=== PATIENT | female | born 1980 | race Hispanic/Latino ===

== ENCOUNTER 2017-10-07 16:15 | Emergency (ER) | payer BC, SELFPAY ==
--- NOTE | 2017-10-07 17:11 | RAD REPORT ---
EXAM DESCRIPTION: RAD - Knee Left 3 View - 10/07/2017 5:06 pm CLINICAL HISTORY: Slip and fall, knee pain COMPARISON: None. FINDINGS: No fracture, dislocation or periosteal reaction.No joint effusion seen. No joint space esteban rowing. No soft tissue abnormality. IMPRESSION: Negative left knee. Clinical concerns for internal derangement or occult bony injury could be further assessed with MR im aging.
--- NOTE | 2017-10-07 17:25 | EDPHYS ---
Physician Documentation [facility] Name: Cecille Min Age: 37 yrs Sex: Female : 1980 Arrival Date: 10/07/2017 Time: 16:16 Bed 6 Private MD: ED Physician Brad Trimble HPI: 10/07 17:00 This 37 yrs old Female presents to ER via Ambulatory with complaints of Knee jr8 Injury. 17:00 The patient presents with an abrasion, pain, tenderness. The complaints affect the left jr8 knee. Context: The problem was sustained outdoors, resulted from the patient falling. Onset: The symptoms/episode began/occurred acutely. Modifying factors: The symptoms are alleviated by nothing. the symptoms are aggravated by movement, weight bearing, bending knee. Associated signs and symptoms: The patient has no apparent associated signs or symptoms. Severity of symptoms: At their worst the symptoms were moderate, in the emergency department the symptoms are unchanged. The patient has not experienced similar symptoms in the past. The patient has not recently seen a physician. Stated that she fell on her knee. Has been trying to cope with pain but that it continues to get worse . 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 - Social history:: Smoking status: Patient/guardian denies using tobacco. ROS: 17:00 Eyes: Negative for injury, pain, redness, and discharge, ENT: Negative for injury, jr8 pain, and discharge, Neck: Negative for injury, pain, and swelling, Cardiovascular: Negative for chest pain, palpitations, and edema, Respiratory: Negative for shortness of breath, cough, wheezing, and pleuritic chest pain, Abdomen/GI: Negative for abdominal pain, nausea, vomiting, diarrhea, and constipation, Back: Negative for injury and pain, Skin: Negative for injury, rash, and discoloration, Neuro: Negative for headache, weakness, numbness, tingling, and seizure. 17:00 MS/extremity: Positive for abrasion, pain, tenderness, of the left knee. Exam: 17:00 Cardiovascular: Regular rate and rhythm with a normal S1 and S2. No gallops, murmurs, jr8 or rubs. Normal PMI, no JVD. No pulse deficits. Respiratory: Lungs have equal breath sounds bilaterally, clear to auscultation and percussion. No rales, rhonchi or wheezes noted. No increased work of breathing, no retractions or nasal flaring. Skin: Warm, dry with normal turgor. Normal color with no rashes, no lesions, and no evidence of cellulitis. Neuro: Awake and alert, GCS 15, oriented to person, place, time, and situation. Cranial nerves II-XII grossly intact. Motor strength 5/5 in all extremities. Sensory grossly intact. Cerebellar exam normal. Normal gait. 17:00 Musculoskeletal/extremity: Extremities: grossly normal except: noted in the left knee: abrasion, pain, tenderness, ROM: intact in all extremities, full active range of motion, full passive range of motion, limited active range of motion due to pain, limited passive range of motion due to pain, Circulation is intact in all extremities. Sensation intact. Weight bearing: able to fully bear weight. Vital Signs: 16:22 BP 117 / 82; Pulse 107; Resp 20; Temp 99.0; Pulse Ox 99% on R/A; Weight 116.57 kg; aj Height 5 ft. 7 in. (170.18 cm); Pain 5/10; 16:22 Body Mass Index 40.25 (116.57 kg, 170.18 cm) MDM: 16:31 Patient medically screened. jr8 17:25 Data reviewed: vital signs, nurses notes, radiologic studies, plain films, and as a jr8 result, I will discharge patient. Data interpreted: Pulse oximetry: on room air is 99 %. Interpretation: normal. Counseling: I had a detailed discussion with the patient and/or guardian regarding: the historical points, exam findings, and any diagnostic results supporting the discharge/admit diagnosis, radiology results, the need for outpatient follow up, a orthopedic surgeon, to return to the emergency department if symptoms worsen or persist or if there are any questions or concerns that arise at home. 10/07 16:24 Order name: XRAY Knee LEFT 3 view; Complete Time: 17:24 Administered Medications: No medications were administered Disposition: 19:01 Co-signature as Attending Physician, Brad Trimble MD. rn Disposition: 10/07/17 17:25 Discharged to Home. Impression: Contusion of left knee. - Condition is Stable. - Discharge Instructions: Knee Pain. - Prescriptions for Ibuprofen 800 mg Oral Tablet - take 1 tablet by ORAL route every 12 hours As needed take with food; 20 tablet. Tramadol 50 mg Oral Tablet - take 1 tablet by ORAL route every 8 hours as needed; 12 tablet. - Medication Reconciliation Form, Thank You Letter, Antibiotic Education, Prescription Opioid Use form. - Follow up: Juanjo Katz MD; When: 7 - 10 days; Reason: If symptoms return, Recheck today's complaints, Continuance of care, Re-evaluation by your physician. - Problem is new. - Symptoms have improved. Signatures: Dispatcher [employer] Ana Ramirez, RN Zee Richter RN RN aj Nieto, Roman, MD MD rn Roszak, Josh, PA PA jr8
--- NOTE | 2017-10-07 17:25 | ER ---
Nurse's Notes [facility] Name: Cecille Min Age: 37 yrs Sex: Female : 1980 Arrival Date: 10/07/2017 Time: 16:16 Bed 6 Private MD: Diagnosis: Contusion of left knee Presentation: 10/07 16:20 Presenting complaint: Patient states: Reports falling onto left knee 2 days ago. aj Patient ambulated to triage with limp to left leg. Abrasion noted to left knee. Transition of care: patient was not received from another setting of care. Onset of symptoms was October 05, 2017. Initial Sepsis Screen: Does the patient meet any 2 criteria? No. Patient's initial sepsis screen is negative. Does the patient have a suspected source of infection? No. Patient's initial sepsis screen is negative. Care prior to arrival: None. 16:20 Method Of Arrival: Ambulatory 16:20 Acuity: NANCY 4 aj Triage Assessment: 16:22 General: Appears in no apparent distress. comfortable, Behavior is calm, cooperative, aj appropriate for age. Pain: Complains of pain in left knee. Neuro: Level of Consciousness is awake, alert, obeys commands, Oriented to person, place, time, situation, Appropriate for age. Respiratory: Airway is patent Respiratory effort is even, unlabored, Respiratory pattern is regular, symmetrical. Derm: Skin is intact, is healthy with good turgor, Skin is pink, warm \T\ dry. normal. Musculoskeletal: Circulation, motion, and sensation intact. Range of motion: intact in all extremities, Reports pain in left knee. Injury Description: Abrasion sustained to left knee. 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 - Social history:: Smoking status: Patient/guardian denies using tobacco. Screenin:35 Abuse screen: Denies threats or abuse. Denies injuries from another. Nutritional sv screening: No deficits noted. Tuberculosis screening: No symptoms or risk factors identified. Fall Risk None identified. Assessment: 16:35 General: Appears in no apparent distress. uncomfortable, well developed, Behavior is sv calm, cooperative, appropriate for age. Pain: Complains of pain in left knee Pain does not radiate. Pain currently is 5 out of 10 on a pain scale. Quality of pain is described as tender, throbbing, Pain began 1 day ago. Is intermittent, episodic, Aggravated by exercise, increased activity, weight bearing. Neuro: Level of Consciousness is awake, alert, obeys commands, Oriented to person, place, time, situation, Moves all extremities. Full function Gait is steady, with slight limp. Speech is normal. Cardiovascular: Patient's skin is warm and dry. Respiratory: Respiratory effort is even, unlabored, Respiratory pattern is regular, symmetrical. Derm: Skin is pink, warm \T\ dry. Bruising that is dark purple, on left knee. Musculoskeletal: Range of motion: intact in all extremities. Injury Description: Abrasion sustained to left knee is scabbed, was sustained 1 day ago. 17:40 Reassessment: Patient appears in no apparent distress at this time. No changes from previously documented assessment. Patient and/or family updated on plan of care and expected duration. Pain level reassessed. Patient is alert, oriented x 3, equal unlabored respirations, skin warm/dry/pink. Vital Signs: 16:22 BP 117 / 82; Pulse 107; Resp 20; Temp 99.0; Pulse Ox 99% on R/A; Weight 116.57 kg; aj Height 5 ft. 7 in. (170.18 cm); Pain 5/10; 16:22 Body Mass Index 40.25 (116.57 kg, 170.18 cm) aj ED Course: 16:16 Patient arrived in ED. as 16:21 Triage completed. aj 16:22 Arm band placed on right wrist. Patient placed in waiting room, Patient notified of aj wait time. X-ray ordered. 16:31 Rio Wakefield PA is PHCP. jr8 16:31 Brad Trimble MD is Attending Physician. jr8 16:31 Ana Monge RN is Primary Nurse. sv 16:35 Patient has correct armband on for positive identification. Bed in low position. Call sv light in reach. Door closed. Head of bed elevated. 16:46 Awaiting for x-ray. sv 16:58 X-ray(s) taken. sv 17:03 X-ray completed. Portable x-ray completed in exam room. Patient tolerated procedure ml well. 17:04 XRAY Knee LEFT 3 view In Process Unspecified. EDMS 17:25 Juanjo Katz MD is Referral Physician. jr8 17:40 No provider procedures requiring assistance completed. Patient did not have IV access sv during this emergency room visit. Administered Medications: No medications were administered Outcome: 17:25 Discharge ordered by . jr8 17:40 Discharged to home ambulatory. sv 17:40 Condition: stable 17:40 Discharge instructions given to patient, Instructed on discharge instructions, follow up and referral plans. no drinking with medication, no driving heavy equipment, medication usage, Demonstrated understanding of instructions, follow-up care, medications, Prescriptions given X 2. 17:41 Patient left the ED. sv Signatures: Dispatcher [employer] [facility] Ana Monge RN RN sv Myers, Amanda, RN RN aj Martinez, Amelia as Lopez, Melissa ml Roszak, Josh, PA PA jr8
== END 2017-10-07 17:41 | disposition home or self-care (01) ==
LOC: ER 16:15
DX: S80.02XA Contusion of left knee, initial encounter (principal); W19.XXXA Unspecified fall, initial encounter; Y92.89 Other specified places as the place of occurrence of the external cause
CPT/HCPCS: 99283

== ENCOUNTER 2022-09-05 07:41 | Emergency (ER) | payer SELFPAY ==
[2022-09-05] MEDS ORDERED: ONDANSETRON 4 MG/2 ML VIAL ONE (08:09)
[2022-09-05] MEDS ORDERED: KETOROLAC 30 MG/ML INJ ONE (08:09)
[2022-09-05 08:14] LABS: Absolute Lymphocytes (CBC) 1.3 K/uL (0.7-4.9); Hematocrit 29.3 % (36.0-45.0); Lymphocytes % 17.7 % (15.3-44.8); MCV 81.7 fL (80-100); MPV 7.9 fL (7.6-11.3); RBC Red Blood Cell Count 3.58 M/uL (3.86-4.86)
[2022-09-05 08:23] LABS: Specific Gravity > 1.030 (1.005-1.030); Urine Bacteria <20 /HPF (<20); Urine Bilirubin NEGATIVE (Negative); Urine Blood Negative (Negative); Urine Clarity Turbid (Clear); Urine Color Yellow (Yellow); Urine Glucose NEGATIVE (Negative); Urine Mucus 4+ /HPF (None Seen); Urine Protein 1+ (Negative); Urine Urobilinogen Normal (Normal); Urine WBC Clump Rare /HPF (None Seen)
[2022-09-05 08:30] LABS: Albumin 3.5 g/dL (3.4-5.0); Bilirubin Total 0.3 mg/dL (0.2-1.0); Potassium 3.6 mEq/L (3.5-5.1); Protein, Total 7.2 g/dL (6.4-8.2)
--- NOTE | 2022-09-05 09:21 | RAD REPORT ---
EXAM DESCRIPTION: CTAbdomen Pelvis W Contrast - 09/05/2022 9:08 am CLINICAL HISTORY: Abdominal pain. ab pain COMPARISON: No comparisons TECHNIQUE: Biphasic CT imaging of the abdomen and pelvis was performed with 100 ml non-ionic IV cont rast. All CT scans are performed using dose optimization technique as appropriate and may include automated exposure control or mA/KV adjustment according to patient size. FINDINGS: Subpleural opacities in both lung bases has the appearance of scarring or fibrotic changes .Cholecystectomy The liver, spleen, pancreas, adrenal glands and kidneys are within normal limits. No bowel obstruction, free air, free fluid or abscess. The appendix is normal. No evidence of signi ficant lymphadenopathy. Mild fibroid uterus. No suspicious bony findings. IMPRESSION: No acute intra-abdominal or pelvic finding.
--- NOTE | 2022-09-05 09:31 | ER ---
Nurse's Notes [facility] Name: Cecille Carty Age: 41 yrs Sex: Female : 1980 Arrival Date: 09/05/2022 Time: 07:43 Bed 8 Private MD: Diagnosis: UTI/ Urinary tract infection, site not specified Presentation: 09/05 07:45 Chief complaint: Patient states: LLQ pain radiating down left leg and left low back aa5 since yesterday, pt reports pain improved after taking Tylenol and was able to sleep until the pain woke her up at 0300 today. Pt states "I only get this kind of pains with my periods but I am not on my period right now". Denies urinary symptoms. 07:45 Coronavirus screen: At this time, the client does not indicate any symptoms associated aa5 with coronavirus-19. Ebola Screen: Patient denies travel to an Ebola-affected area in the 21 days before illness onset. Initial Sepsis Screen: Does the patient meet any 2 criteria? No. Patient's initial sepsis screen is negative. Does the patient have a suspected source of infection? No. Patient's initial sepsis screen is negative. Risk Assessment: Do you want to hurt yourself or someone else? Patient reports no desire to harm self or others. Onset of symptoms was September 05, 2022. 07:45 Acuity: NANCY 3 aa5 07:45 Method Of Arrival: Ambulatory aa5 Historical: - Allergies: 07:51 No Known Allergies; aa5 - Home Meds: 07:51 None [Active]; aa5 - PMHx: 07:51 Fibromyalgia; aa5 - PSHx: 07:51 Cholecystectomy; tubal ligation; tumors removed from sinus; aa5 - Immunization history:: Adult Immunizations unknown. - Social history:: Smoking status: Patient denies any tobacco usage or history of. - Family history:: not pertinent. Screenin:10 [facility] ED Fall Risk Assessment (Adult) Score/Fall Risk Level 0 - 2 = Low Risk hb Oriented to surroundings, Maintained a safe environment, Educated pt \\T\\ family on fall prevention, incl call for assistance when getting out of bed. Abuse screen: Denies threats or abuse. Denies injuries from another. Nutritional screening: No deficits noted. Tuberculosis screening: No symptoms or risk factors identified. Assessment: 08:09 General: Appears in no apparent distress. uncomfortable, Behavior is cooperative, hb crying. Pain: Pain currently is 10 out of 10 on a pain scale. Neuro: Level of Consciousness is awake, alert, obeys commands, Oriented to person, place, time, situation. Cardiovascular: Patient's skin is warm and dry. Respiratory: Respiratory effort is even, unlabored, Respiratory pattern is regular, symmetrical. GI: Reports LLQ pain 10/10. : No signs and/or symptoms were reported regarding the genitourinary system. EENT: No signs and/or symptoms were reported regarding the EENT system. Derm: Skin is pink, warm \\T\\ dry. Musculoskeletal: No signs and/or symptoms reported regarding the musculoskeletal system. 08:10 Reassessment: Pt ambulatory to restroom to collect urine specimen. . aa5 08:33 Reassessment: Patient is alert, oriented x 3, equal unlabored respirations, skin aa5 warm/dry/pink. Patient states feeling better. Patient states symptoms have improved. Pain: Pain currently is 8 out of 10 on a pain scale. 09:18 Reassessment: Patient appears in no apparent distress at this time. Patient and/or hb family updated on plan of care and expected duration. Pain level reassessed. Patient is alert, oriented x 3, equal unlabored respirations, skin warm/dry/pink. Vital Signs: 07:45 BP 142 / 83; Pulse 76; Resp 20 S; Temp 98.4(O); Pulse Ox 99% on R/A; Weight 107.5 kg aa5 (R); Height 5 ft. 7 in. (R); 08:33 BP 127 / 60; Pulse 68; Resp 18 S; Pulse Ox 99% on R/A; aa5 09:17 BP 111 / 53; Pulse 76; Resp 15; Pulse Ox 99% on R/A; hb 07:45 Body Mass Index 37.12 (107.50 kg, 170.18 cm) aa5 ED Course: 07:43 Patient arrived in ED. mr 07:45 Arm band placed on Patient placed in an exam room, on a stretcher. aa5 07:48 Wade Arizmendi MD is Attending Physician. rt 07:54 Triage completed. aa5 08:04 Initial lab(s) drawn, by me, sent to lab. Inserted saline lock: 20 gauge in right aa5 antecubital area, using aseptic technique. Blood collected. 08:08 UAM Sent. hb 08:08 Lipase Sent. hb 08:08 CMP Sent. hb 08:08 CBC with Diff Sent. hb 08:08 Test, Serum Sent. hb 08:10 Patient has correct armband on for positive identification. hb 09:09 CT Abd/Pelvis - IV Contrast Only In Process Unspecified. EDMS 09:38 No provider procedures requiring assistance completed. IV discontinued, intact, hb bleeding controlled, No redness/swelling at site. Administered Medications: 08:08 Drug: Ketorolac IVP 30 mg Route: IVP; Site: right antecubital; hb 08:08 Drug: Ondansetron IVP 4 mg Route: IVP; Site: right antecubital; hb Medication: 09:38 VIS not applicable for this client. hb Outcome: 09:30 Discharge ordered by MD. rt 09:38 Discharged to home ambulatory. hb 09:38 Condition: stable 09:38 Discharge instructions given to patient, Instructed on discharge instructions, follow up and referral plans. medication usage, Demonstrated understanding of instructions, follow-up care, medications, Prescriptions given X 2. 09:39 Patient left the ED. hb Signatures: Dispatcher [employer] [facility] Bárbara Krishna mr Laurita Walker RN RN aaRenetta Hart RN RN Wade Mcgregor MD MD rt Corrections: (The following items were deleted from the chart) 21:01 07:45 Laurita Walker, RN is Primary Nurse. aa5 aa5
--- NOTE | 2022-09-05 09:31 | EDPHYS ---
Physician Documentation [facility] Name: Cecille Carty Age: 41 yrs Sex: Female : 1980 Arrival Date: 09/05/2022 Time: 07:43 Bed 8 Private MD: ED Physician Wade Arizmendi HPI: 09/05 08:16 This 41 yrs old Female presents to ER via Ambulatory with complaints of rt Abdominal Pain, Leg Pain, Back Pain. 08:16 Patient presents to the ED with a left lower quadrant pain that radiates down posterior rt leg, to her low back. This started yesterday evening, is worsening in severity today. Patient states that she typically gets these pains albeit somewhat less severe when she has her period, states that she is not currently on her period, LMP was 2 weeks ago. Had a previous tubal ligation. The patient denies any vaginal bleeding, discharge, dysuria, hematuria, bowel troubles. Denies true flank pain. Reports nausea without vomiting. Denies other acute complaints at this time, symptoms are moderate in severity, no other aggravating or alleviating factors.. Historical: - Allergies: 07:51 No Known Allergies; aa5 - Home Meds: 07:51 None [Active]; aa5 - PMHx: 07:51 Fibromyalgia; aa5 - PSHx: 07:51 Cholecystectomy; tubal ligation; tumors removed from sinus; aa5 - Immunization history:: Adult Immunizations unknown. - Social history:: Smoking status: Patient denies any tobacco usage or history of. - Family history:: not pertinent. ROS: 08:16 Constitutional: Negative for fever, chills, and weight loss, Cardiovascular: Negative rt for chest pain, palpitations, and edema, Respiratory: Negative for shortness of breath, cough, wheezing, and pleuritic chest pain, MS/Extremity: Negative for injury and deformity, Skin: Negative for injury, rash, and discoloration, Neuro: Negative for headache, weakness, numbness, tingling, and seizure, Psych: Negative for depression, anxiety, suicide ideation, homicidal ideation, and hallucinations. 08:16 Abdomen/GI: Positive for abdominal pain, nausea. 08:16 Back: Positive for pain at rest, Negative for injury or acute deformity. Exam: 08:16 Constitutional: This is a well developed, well nourished patient who is awake, alert, rt and in no acute distress. Head/Face: Normocephalic, atraumatic. Chest/axilla: Normal chest wall appearance and motion. Nontender with no deformity. No lesions are appreciated. Cardiovascular: Regular rate and rhythm with a normal S1 and S2. No gallops, murmurs, or rubs. Normal PMI, no JVD. No pulse deficits. Respiratory: Lungs have equal breath sounds bilaterally, clear to auscultation and percussion. No rales, rhonchi or wheezes noted. No increased work of breathing, no retractions or nasal flaring. Skin: Warm, dry with normal turgor. Normal color with no rashes, no lesions, and no evidence of cellulitis. MS/ Extremity: Pulses equal, no cyanosis. Neurovascular intact. Full, normal range of motion. Neuro: Awake and alert, GCS 15, oriented to person, place, time, and situation. Cranial nerves II-XII grossly intact. Motor strength 5/5 in all extremities. Sensory grossly intact. Cerebellar exam normal. Normal gait. Psych: Awake, alert, with orientation to person, place and time. Behavior, mood, and affect are within normal limits. 08:16 Abdomen/GI: Tenderness to the left lower quadrant without rebound, guarding, distention, no costovertebral angle tenderness.. Vital Signs: 07:45 BP 142 / 83; Pulse 76; Resp 20 S; Temp 98.4(O); Pulse Ox 99% on R/A; Weight 107.5 kg aa5 (R); Height 5 ft. 7 in. (R); 08:33 BP 127 / 60; Pulse 68; Resp 18 S; Pulse Ox 99% on R/A; aa5 09:17 BP 111 / 53; Pulse 76; Resp 15; Pulse Ox 99% on R/A; hb 07:45 Body Mass Index 37.12 (107.50 kg, 170.18 cm) aa5 MDM: 07:54 Patient medically screened. rt 09:32 Differential diagnosis: UTI, pyelonephritis, ovarian torsion, diverticulitis. Data rt reviewed: vital signs, nurses notes, lab test result(s), radiologic studies. Test considered but Not performed: Ultrasound Symptoms resolved with Toradol, presentation is not consistent with an ovarian torsion, do not believe that ultrasound is indicated at this time. I discussed concerning symptoms for ovarian torsion, patient to return if she develops the symptoms for reevaluation of ovarian torsion.. Counseling: I had a detailed discussion with the patient and/or guardian regarding: the historical points, exam findings, and any diagnostic results supporting the discharge/admit diagnosis, lab results, radiology results, the need for outpatient follow up, to return to the emergency department if symptoms worsen or persist or if there are any questions or concerns that arise at home. 09/05 08:01 Order name: CBC with Diff; Complete Time: 09:24 rt 09/05 08:01 Order name: CMP; Complete Time: 09:24 rt 09/05 08:01 Order name: Lipase; Complete Time: :24 rt 09/05 08:01 Order name: UAM; Complete Time: :24 rt 09/05 08:01 Order name: Test, Serum; Complete Time: 09:24 rt 09/05 08:26 Order name: Urine Culture EDMS 09/05 08:01 Order name: CT Abd/Pelvis - IV Contrast Only; Complete Time: 09:24 rt Administered Medications: 08:08 Drug: Ketorolac IVP 30 mg Route: IVP; Site: right antecubital; hb 08:08 Drug: Ondansetron IVP 4 mg Route: IVP; Site: right antecubital; hb Disposition Summary: 09/05/22 09:30 Discharge Ordered Location: Home rt Problem: new rt Symptoms: are resolved rt Condition: Stable rt Diagnosis - UTI/ Urinary tract infection, site not specified rt Followup: rt - With: Private Physician - When: 2 - 3 days - Reason: Discharge Instructions: - Discharge Summary Sheet rt - Urinary Tract Infection, Adult rt Forms: - Work release form hb - Medication Reconciliation Form rt - Thank You Letter rt - Antibiotic Education rt - Prescription Opioid Use rt Prescriptions: - ketorolac 10 mg Oral tablet - take 1 tablet by ORAL route every 8 hours for 3 days as needed for pain; 9 rt tablet; Refills: 0, Product Selection Permitted - cefpodoxime 100 mg Oral Tablet - take 1 tablet by ORAL route every 12 hours for 10 days take with food; 20 rt tablet; Refills: 0, Product Selection Permitted Signatures: Dispatcher [employer] Laurita Giang RN RN aa5 Renetta Emerson RN RN [place], Wade, MD MD rt
[2022-09-05 09:43] VITALS: TEMP 98.4; O2SAT 99
[2022-09-05 09:45] VITALS: BP 111/53
== END 2022-09-05 09:39 | disposition home or self-care (01) ==
LOC: ER 07:41
DX: N39.0 Urinary tract infection, site not specified (principal)
CPT/HCPCS: 36415; 74177; 80053; 81001; 83690; 84703; 85025; 87077; 87086; 87088; 87186; 96374; 96375; 99284; J2405; Q9967

== ENCOUNTER 2024-04-25 08:49 | Emergency (ER) | payer OTHER, SELFPAY ==
[2024-04-25 09:40] LABS: Absolute Basophils 0.1 K/uL (0-0.5); Absolute Eosinophils 0.1 K/uL (0-0.5); Absolute Lymphocytes (CBC) 0.8 K/uL (0.7-4.9); Absolute Monocytes 0.3 K/uL (0.1-1.3); Absolute Neutrophil 2.8 K/uL (1.8-8.0); Basophils % 1.2 % (0-1.3); Eosinophils % 1.7 % (0-4.4); Hematocrit 23.1 % (36.0-45.0); Hemoglobin 7.2 g/dL (12.0-15.0); Lymphocytes % 19.6 % (15.3-44.8); MCH 20.9 pg (27.0-35.0); MCV 67.5 fL (80-100); MPV 7.8 fL (7.6-11.3); Monocytes % 8.4 % (3.3-12.3); Neutrophils % 69.1 % (41.7-73.7); Nucleated Red Blood Cells % 0.3 % (0-0); Platelets 433 thou/uL (152-406); RBC Red Blood Cell Count 3.42 M/uL (3.86-4.86); Red Cell Distribution Width 18.3 % (12.1-15.2)
[2024-04-25 09:46] LABS: PT Prothrombin Time 11.9 SECONDS (9.4-12.5); PTT, Activated Partial Thromb 34.8 SECONDS (24.3-36.9); Protime INR 1.06
[2024-04-25 09:59] LABS: Specific Gravity > 1.030 (1.005-1.030)
[2024-04-25 10:00] LABS: Albumin 3.3 g/dL (3.4-5.0); Albumin/Globulin Ratio 0.9 (1.1-1.8); Anion Gap 9.4 mEq/L (5.0-15.0); Bilirubin Direct 0.2 mg/dL (0-0.2); Bilirubin Indirect, Calculated 0.4 mg/dL (0.2-0.8); Bilirubin Total 0.6 mg/dL (0.2-1.0); Globulin 3.7 g/dL (2.3-3.5); Magnesium 2.3 mg/dL (1.6-2.4); Potassium 3.4 mEq/L (3.5-5.1); Troponin High Sensitivity 32.7 pg/mL (<58.9)
[2024-04-25 10:13] LABS: Specific Gravity > 1.030 (1.005-1.030); Transitional Epithelial <5 /HPF (None Seen); Urine Bacteria 20-50 /HPF (<20); Urine Bilirubin 1+ (Negative); Urine Blood 3+ (OVER) (Negative); Urine Clarity Extremely Turbid (Clear); Urine Color Orange (Yellow); Urine Culture Reflex Order REFLEXED; Urine Glucose TRACE (Negative); Urine Ketones 1+ (Negative); Urine Microscopic Reflex YN ORDER UMIC; Urine Mucus 4+ /HPF (None Seen); Urine Nitrite NEGATIVE (Negative); Urine Protein 3+ (Negative); Urine RBC >50 /HPF (None Seen); Urine Urobilinogen 1+ (Normal); Urine WBC 20-50 /HPF (<5)
[2024-04-25 10:14] LABS: Anisocytosis 1+; Blood Morphology Comment NOTED (NOT SEEN); Hypochromasia 1+; Microcytosis 2+; Platelet Estimate ADEQ; White Blood Cell Scan OK (OK)
[2024-04-25] MEDS ORDERED: NA CHLORIDE 0.9% 250 ML ONE (10:50)
--- NOTE | 2024-04-25 14:40 | RAD REPORT ---
EXAMINATION: ONE VIEW CHEST XR CLINICAL INDICATION: Female, 43 years old.SOB TECHNIQUE: 1 View, AP supine, X-ray of the chest was performed. [id number]. COMPARISON: No prior exam. FINDINGS: Lungs and pleura: Low lung volumes with some mild ill-defined opacities in lung bases. No effusion. Heart and mediastinum: Normal heart size. Unremarkable mediastinal contours. Osseous structures: No acute abnormality. Tubes/lines: None Other: None. IMPRESSION: Low lung volumes with mild basilar opacities could reflect atelectasis and/or mild pneumonia.
--- NOTE | 2024-04-25 15:04 | EDPHYS ---
Physician Documentation [facility] Name: Cecille Carty Age: 43 yrs Sex: Female : 1980 Arrival Date: 04/25/2024 Time: 08:49 Bed 6 Private MD: ED Physician Mansi Connor HPI: 04/25 11:00 This 43 yrs old Female presents to ER via Ambulatory with complaints of gb1 Dizziness, Near Syncope, Palpitations, Vomiting. 11:00 43-year-old female with vaginal bleeding since April 09. The bleeding started off as gb1 spotting and then progressed to a heavy. Up until 14 April where she continuously started to bleed heavy until today. She is also still bleeding. She has a history of seeing a pharmacy associate and has had a pelvic ultrasound in the recent past which did not show any abnormalities. She denies any vaginal discharge or pelvic pain other than normal cramping with her bleeding. She states that when she gets up and walks around she feels palpitations and she is somewhat short of breath and lightheaded. She does have a history of anemia and takes iron celc-ith-msbfesn.. 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 - Infectious Disease History:: Denies. - Social history:: Smoking status: Patient denies any tobacco usage or history of. Exam: 11:00 Constitutional: This is a well developed, well nourished patient who is awake, alert, gb1 and in no acute distress. Head/Face: Normocephalic, atraumatic. Eyes: Pupils equal round and reactive to light, extra-ocular motions intact. Lids and lashes normal. Conjunctiva and sclera are non-icteric and not injected. Cornea within normal limits. Periorbital areas with no swelling, redness, or edema. ENT: Nares patent. No nasal discharge, no septal abnormalities noted. Tympanic membranes are normal and external auditory canals are clear. Oropharynx with no redness, swelling, or masses, exudates, or evidence of obstruction, uvula midline. Mucous membranes moist. Neck: Trachea midline, no thyromegaly or masses palpated, and no cervical lymphadenopathy. Supple, full range of motion without nuchal rigidity, or vertebral point tenderness. No Meningismus. Chest/axilla: Normal chest wall appearance and motion. Nontender with no deformity. No lesions are appreciated. Cardiovascular: Tachycardic rate and rhythm with a normal S1 and S2. No gallops, murmurs, or rubs. Normal PMI, no JVD. No pulse deficits. Respiratory: Lungs have equal breath sounds bilaterally, clear to auscultation and percussion. No rales, rhonchi or wheezes noted. No increased work of breathing, no retractions or nasal flaring. Abdomen/GI: Soft, non-tender, with normal bowel sounds. No distension or tympany. No guarding or rebound. No evidence of tenderness throughout. Skin: Warm, dry with normal turgor. Normal color with no rashes, no lesions, and no evidence of cellulitis. MS/ Extremity: Pulses equal, no cyanosis. Neurovascular intact. Full, normal range of motion. Vital Signs: 08:58 BP 122 / 68; Resp 17; Temp 97.2; Pulse Ox 97% on R/A; Weight 101.15 kg; Height 5 ft. 7 ll1 in. ; Pain 0/10; 09:10 Pulse 118; mb9 10:16 BP 118 / 86; Pulse 105; Resp 18; Pulse Ox 100% on R/A; mb9 10:45 BP 109 / 73; Pulse 104; Resp 16; Pulse Ox 100% on R/A; Pain 0/10; ss 12:47 BP 111 / 76; Pulse 90; Resp 18; Pulse Ox 100% on R/A; mb9 13:07 BP 100 / 79; Pulse 96; Resp 18; Temp 97.4; Pulse Ox 100% on R/A; mb9 13:12 BP 103 / 74; Pulse 97; Resp 18; Temp 97.4; Pulse Ox 100% on R/A; mb9 13:17 BP 111 / 73; Pulse 90; Resp 18; Temp 97.4; Pulse Ox 100% on R/A; mb9 13:22 BP 110 / 77; Pulse 90; Resp 18; Temp 97.5; Pulse Ox 100% on R/A; mb9 08:58 Body Mass Index 34.93 (101.15 kg, 170.18 cm) ll1 08:58 Pain Scale: Adult ll1 10:45 Pain Scale: Adult ss 13:07 Baseline for 1st unit of RBC mb9 MDM: 08:57 Medical Screening Exam initiated gb1 11:00 Differential diagnosis: generalized weakness, near-syncope, syncope. Data reviewed: [facility] vital signs, nurses notes, lab test result(s), CBC, electrolytes, urinalysis, UPT:. 11:00 ED course: 43-year-old female with presumed dysfunctional uterine bleeding. Patient is gb1 non and at this time is otherwise hemodynamically stable other than some resting tachycardia at 104 bpm. Patient refused a pelvic exam today as well as a pelvic ultrasound which she is recently had which she reports is normal. Patient's hemoglobin today is 7.2 I will administer 1 unit of packed red blood cells for which should clinically improve her symptoms. I will refer her to follow-up with a pharmacy associate as well to prescribe progesterone as an outpatient for the cessation of her vaginal bleeding.. 15:07 ED course: 43-year-old female with symptomatic anemia likely secondary to dysfunctional gb1 uterine bleeding. Patient's been given 1 unit of packed red blood cells and is clinically much improved. Her heart rate is 90 and she has been given instructions to take Provera and follow-up with her pharmacy associate of record to which she is compliant with prior to discharge home today.. 04/25 09:06 Order name: Basic Metabolic Panel; Complete Time: 10:33 04/25 09:06 Order name: CBC with Diff; Complete Time: 10:33 04/25 09:06 Order name: Hepatic Function; Complete Time: 10:33 04/25 09:06 Order name: Magnesium; Complete Time: 10:33 04/25 09:06 Order name: Test, Urine; Complete Time: 10:33 04/25 09:06 Order name: Protime (+inr); Complete Time: 09:58 04/25 09:06 Order name: Ptt, Activated; Complete Time: 09:58 04/25 09:06 Order name: Troponin High Sensitivity; Complete Time: 10:33 04/25 09:06 Order name: Urinalysis w/ reflexes; Complete Time: 10:33 gb1 04/25 09:06 Order name: Type And Screen [facility] 04/25 10:17 Order name: Urine Culture EDIN 04/25 10:17 Order name: CBC Smear Scan [facility] 04/25 11:20 Order name: ABO/RH no charge; Complete Time: 14:42 [facility] 04/25 11:28 Order name: Packed RBCs (Additional Unit) [facility] 04/25 09:06 Order name: Chest Single View XRAY; Complete Time: 14:42 [facility] 04/25 09:06 Order name: Cardiac monitoring; Complete Time: 09:06 1 04/25 09:06 Order name: EKG - Nurse/Tech; Complete Time: 09:06 [facility] 04/25 09:06 Order name: IV Saline Lock; Complete Time: 09:27 [facility] 04/25 09:06 Order name: Labs collected and sent; Complete Time: 09:27 [facility] 04/25 09:06 Order name: NPO; Complete Time: 09:06 [facility] 04/25 09:06 Order name: O2 Per Protocol; Complete Time: 09:06 [facility] 04/25 09:06 Order name: O2 Sat Monitoring; Complete Time: 09:06 1 04/25 10:51 Order name: Consent for Blood Transfusion; Complete Time: 10:52 gb1 Administered Medications: No medications were administered Disposition Summary: 04/25/24 15:03 Discharge Ordered Notes: Location: Home gb1 Condition: Stable gb1 Diagnosis - Iron deficiency anemia, unspecified gb1 - Abnormal uterine and vaginal bleeding, unspecified gb1 Followup: gb1 - With: Private Physician - When: - Reason: Further diagnostic work-up Discharge Instructions: - Discharge Summary Sheet mb9 - Iron Deficiency Anemia, Adult gb1 - Blood Transfusion, Adult, [id number] gb1 Forms: - Work release form mb9 - Medication Reconciliation Form gb1 - Antibiotic Education gb1 - Prescription Opioid Use gb1 - Patient Portal Instructions gb1 - Leadership Thank You Letter gb1 Prescriptions: - Provera 5 mg Oral tablet - take 2 tablet ORAL route daily for 10 days; 20 tablet; Refills: 0, Product gb1 Selection Permitted Critical care time excluding procedures: 11:00 Critical care time: Bedside Care: 75 minutes, Family Intervention: 20 minutes. Total gb1 time: 95 minutes 15:07 Critical care time: Bedside Care: 120 minutes. Total time: 120 minutes gb1 Signatures: Dispatcher [employer] EDAmna Swanson, RN RN ll1 Cynthia, Bárbara Gonzalez RN RN mb9 Mansi Connor MD MD gb1 Corrections: (The following items were deleted from the chart) 09:07 09:07 BASIC METABOLIC PANEL+C.LAB.BRZ ordered. EDMS EDMS 09:07 09:07 CBC+H.LAB.BRZ ordered. EDMS EDMS 09:07 09:07 HEPATIC FUNCTION+C.LAB.BRZ ordered. EDMS EDMS 09:07 09:07 MAGNESIUM+C.LAB.BRZ ordered. EDMS EDMS 09:07 09:07 Test, Urine+UC.LAB.BRZ ordered. EDMS EDMS 09:07 09:07 PROTIME (+INR)+COAG.LAB.BRZ ordered. EDMS EDMS 09:07 09:07 PTT, ACTIVATED+COAG.LAB.BRZ ordered. EDMS EDMS 09:07 09:07 Troponin High Sensitivity+C.LAB.BRZ ordered. EDMS EDMS 09:07 09:07 Urinalysis+U.LAB.BRZ ordered. EDMS EDMS 09:07 09:07 TYPE AND SCREEN+BB.LAB.BRZ ordered. EDMS EDMS 09:07 09:07 Chest Single View+RAD.RAD.BRZ ordered. EDMS EDMS 11:07 10:52 PACKED RBC LEUKORED+BB.LAB.BRZ ordered. EDMS EDMS 11:07 10:54 ABO/RH typing ordered. EDMS EDMS 11:07 10:54 Antibody Screen ordered. EDMS EDMS
--- NOTE | 2024-04-25 15:04 | ER ---
Nurse's Notes [facility] Name: Cecille Carty Age: 43 yrs Sex: Female : 1980 Arrival Date: 04/25/2024 Time: 08:49 Bed 6 Private MD: Diagnosis: Iron deficiency anemia, unspecified;Abnormal uterine and vaginal bleeding, unspecified Presentation: 04/25 08:58 Chief complaint: Patient states: Heavy vaginal bleeding for 2 weeks. Started to feel ll1 weak, dizzy, fatigued, near syncope, palpitations, and N/V this weekend. Coronavirus screen: Client denies travel out of the [place] in the last 14 days. At this time, the client does not indicate any symptoms associated with coronavirus-19. Ebola Screen: Patient denies travel to an Ebola-affected area in the 21 days before illness onset. Initial Sepsis Screen: Does the patient meet any 2 criteria? No. Patient's initial sepsis screen is negative. Does the patient have a suspected source of infection? No. Patient's initial sepsis screen is negative. Risk Assessment: Do you want to hurt yourself or someone else? Patient reports no desire to harm self or others. Onset of symptoms was April 12, 2024. 08:58 Method Of Arrival: Ambulatory ll1 08:58 Acuity: NANCY 3 ll1 Triage Assessment: 09:01 General: Appears uncomfortable, ill, Behavior is calm, cooperative, appropriate for ll1 age, Reports fatigue for. Pain: Denies pain. Neuro: Reports dizziness, a syncopal episode weakness. Cardiovascular: Reports palpitations. GI: Reports nausea, vomiting. 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 - Infectious Disease History:: Denies. - Social history:: Smoking status: Patient denies any tobacco usage or history of. Screenin:06 [facility] ED Fall Risk Assessment (Adult) History of falling in the last 3 months, mb9 including since admission No falls in past 3 months (0 pts) Confusion or Disorientation No (0 pts) Intoxicated or Sedated No (0 pts) Impaired Gait Yes (1 pt) Mobility Assist Device Used No (0 pt) Altered Elimination No (0 pt) Score/Fall Risk Level 0 - 2 = Low Risk Oriented to surroundings, Maintained a safe environment, Educated pt \T\ family on fall prevention, incl call for assistance when getting out of bed. Abuse screen: Denies threats or abuse. Nutritional screening: No deficits noted. Tuberculosis screening: No symptoms or risk factors identified. Assessment: 09:05 General: Appears in no apparent distress. Behavior is calm, cooperative. Pain: Denies mb9 pain. Neuro: Reports dizziness. Neuro: Rodriguez Agitation-Sedation Scale (RASS): 0 - Alert and Calm Level of Consciousness is awake, alert, obeys commands, Oriented to person, place, time, situation, Appropriate for age. Cardiovascular: Patient's skin is warm and dry. Rhythm is sinus tachycardia. Respiratory: Airway is patent Respiratory effort is even, unlabored, Respiratory pattern is regular, symmetrical. GI: Abdomen is round non-distended, Bowel sounds present X 4 quads. Abd is soft and non tender X 4 quads. Reports nausea. : Reports vaginal bleeding that is with clots, heavy flow. EENT: No signs and/or symptoms were reported regarding the EENT system. Derm: Skin is intact, Skin is dry, Skin is pale, Skin temperature is cool. Musculoskeletal: Range of motion: intact in all extremities. 09:05 Cardiovascular: Reports palpitations, shortness of breath. Respiratory: Reports mb9 shortness of breath. 10:16 Reassessment: No changes from previously documented assessment. Patient and/or family mb9 updated on plan of care and expected duration. Pain level reassessed. Patient is alert, oriented x 3, equal unlabored respirations, skin warm/dry/pink. 10:45 Reassessment: Patient appears in no apparent distress at this time. No changes from ss previously documented assessment. 12:47 Reassessment: No changes from previously documented assessment. Patient and/or family mb9 updated on plan of care and expected duration. Pain level reassessed. Patient is alert, oriented x 3, equal unlabored respirations, skin warm/dry/pink. 13:07 Reassessment: 1st unit of RBC initiated. See blood transfusion flowsheet for further mb9 information. 14:06 Reassessment: No changes from previously documented assessment. Patient and/or family mb9 updated on plan of care and expected duration. Pain level reassessed. Patient is alert, oriented x 3, equal unlabored respirations, skin warm/dry/pink. Vital Signs: 08:58 BP 122 / 68; Resp 17; Temp 97.2; Pulse Ox 97% on R/A; Weight 101.15 kg; Height 5 ft. 7 ll1 in. ; Pain 0/10; 09:10 Pulse 118; mb9 10:16 BP 118 / 86; Pulse 105; Resp 18; Pulse Ox 100% on R/A; mb9 10:45 BP 109 / 73; Pulse 104; Resp 16; Pulse Ox 100% on R/A; Pain 0/10; ss 12:47 BP 111 / 76; Pulse 90; Resp 18; Pulse Ox 100% on R/A; mb9 13:07 BP 100 / 79; Pulse 96; Resp 18; Temp 97.4; Pulse Ox 100% on R/A; mb9 13:12 BP 103 / 74; Pulse 97; Resp 18; Temp 97.4; Pulse Ox 100% on R/A; mb9 13:17 BP 111 / 73; Pulse 90; Resp 18; Temp 97.4; Pulse Ox 100% on R/A; mb9 13:22 BP 110 / 77; Pulse 90; Resp 18; Temp 97.5; Pulse Ox 100% on R/A; mb9 08:58 Body Mass Index 34.93 (101.15 kg, 170.18 cm) ll1 08:58 Pain Scale: Adult ll1 10:45 Pain Scale: Adult ss 13:07 Baseline for 1st unit of RBC mb9 ED Course: 08:52 Patient arrived in ED. im 08:53 Arm band placed on Patient placed in an exam room, on a stretcher. ll1 08:56 Mansi Connor MD is Attending Physician. gb1 09:01 Triage completed. ll1 09:03 Client placed on continuous cardiac and pulse oximetry monitoring. NIBP monitoring ss applied. Warm blanket given. 09:05 Bárbara Marie, TERRA is Primary Nurse. mb9 09:05 EKG done, by ED staff, reviewed by Mansi Connor MD. mb9 09:07 Placed in gown. Bed in low position. Call light in reach. Side rails up X 1. Provided mb9 Education on: press call light if needing anything. Client placed on continuous cardiac and pulse oximetry monitoring. NIBP monitoring applied. safekeeping clerk on. 09:08 No provider procedures requiring assistance completed. mb9 09:27 Type And Screen Sent. mb9 09:28 Basic Metabolic Panel Sent. mb9 09:28 CBC with Diff Sent. mb9 09:28 Hepatic Function Sent. mb9 09:28 Magnesium Sent. mb9 09:28 Troponin High Sensitivity Sent. mb9 09:28 Ptt, Activated Sent. mb9 09:28 Protime (+inr) Sent. mb9 09:28 Initial lab(s) drawn, by ne, sent to lab. Inserted saline lock: 20 gauge in right mb9 antecubital area, using aseptic technique. Blood collected. Flushed with 10 mL NS. 09:37 Test, Urine Sent. mb9 09:37 Urinalysis w/ reflexes Sent. mb9 09:37 Urine collected: clean catch specimen, willem colored. mb9 10:18 Chest Single View XRAY In Process Unspecified. EDMS 10:37 Urine Culture Sent. mb9 10:51 Consent for blood and/or blood product transfusion explained by staff, explained by mb9 physician, signed by patient. 15:17 IV discontinued, intact, bleeding controlled, No redness/swelling at site. Pressure mb9 dressing applied. Administered Medications: No medications were administered Medication: 09:08 VIS not applicable for this client. mb9 Outcome: 15:03 Discharge ordered by . gb1 15:17 Discharged to home ambulatory, mb9 15:17 Condition: stable 15:17 Discharge instructions given to patient, Instructed on discharge instructions, follow up and referral plans. Demonstrated understanding of instructions, follow-up care, medications, Prescriptions given X 1, 15:17 Patient left the ED. mb9 Signatures: Dispatcher [employer] EDMS Lani Aden RN RN ss Lewis, Lynsay, RN RN sam1 Bárbara Marie RN RN Paola Mckenna Gina, MD MD gb1 Corrections: (The following items were deleted from the chart) 09:07 09:05 Neuro: Rodriguez Agitation-Sedation Scale (RASS): 0 - Alert and Calm Level of mb9 Consciousness is awake, alert, obeys commands, Oriented to person, place, time, situation, Appropriate for age 11 11:03 Antibody Screen drawn and sent. mb9 EDMS 11:03 ABO/RH typing drawn and sent. 9 [facility]
[2024-04-25 15:26] VITALS: O2SAT 100
[2024-04-25 15:33] VITALS: BP 110/77; TEMP 97.5
--- NOTE | 2024-04-26 08:55 | EKG ---
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
== END 2024-04-25 15:17 | disposition home or self-care (01) ==
LOC: ER 08:49
PROC: 30233N1 Transfusion of Nonautologous Red Blood Cells into Peripheral Vein, Percutaneous Approach (ICD-10-PCS; principal; 2024-04-25)
DX: D50.9 Iron deficiency anemia, unspecified (principal)
CPT/HCPCS: 93005; 87088; 85025; 81001; 87086; 80048; 36415; 86900; 83735; 86850; 81025; 85610; 86901; 80076; 85730; 86920; 84484; 71045; 36430; P9016; J7050; 99284